=== PATIENT | female | born 1960 ===

== ENCOUNTER → 2018-04-03 | Outpatient (CLI) | payer OTHER ==
[~2018-04-03] VITALS: Ht 162.6 cm; Wt 51.5 kg
[~2018-04-03] MED LIST: ASPI81 PO; ATOR40TA28 PO; BISA10S PR; CARV3 PO; FURO40 PO; KDUR20 PO; LEVO50 PO; LISI-660 PO
[2018-04-03 11:19] VITALS: BP 82/51
== END | disposition home or self-care (01) ==
LOC: SRCNTR 10:35
PROVIDERS: ATTEND Internal Medicine Clinical Cardiac Electrophysiology
DX: I50.9 Heart failure, unspecified (principal)
CPT/HCPCS: G0463